=== PATIENT | female | born 1970 | race African-American/Black ===

== ENCOUNTER 2017-03-22 21:30 | Inpatient (IN) | payer MEDICAID, OTHER ==
[~2017-03-22] VITALS: Ht 154.9 cm; Wt 73.9 kg
[2017-03-22] MEDS ORDERED: MORPHINE SULFATE 4 MG/ML CPJ (NOT FOR IM USE) IV STA (23:38)
[2017-03-22] MEDS ORDERED: ONDANSETRON HCL 4MG/2ML VIAL IV STA (23:38)
[2017-03-22] MEDS ORDERED: SODIUM CHLORIDE 0.9% 1,000 ML IV ONE (23:38)
[2017-03-22 23:52] LABS: HEMATOCRIT. 40.8 % (36.0-48.0); HEMOGLOBIN. 13.8 g/dL (12.0-16.0); MEAN CORPUSCULAR HEMOGLOBIN 31.7 pg (28.0-32.0); MEAN CORPUSCULAR VOLUME 93.5 fL (81.0-99.0); MEAN PLATELET VOLUME 8.7 fl (7.4-10.4); PLATELET 104 x1000/uL (130-400); RED BLOOD CELL COUNT 4.36 mill/uL (4.2-5.4); RED CELL DISTRIBUTION WIDTH 14.1 % (11.6-14.6)
[2017-03-23] VITALS (63 sets, daily range): BP systolic 119–167; BP diastolic 48–118
[2017-03-23] LABS: CARBON DIOXIDE 25 mEq/L (21-32); CHLORIDE 106 mEq/L (98-107)
[2017-03-23 00:07] LABS: TROPONIN I 0.06 ng/mL (0.00-0.04)
[2017-03-23 00:35] LABS: *AMPHETAMINES SCREEN URINE NEGATIVE (NEGATIVE); *BARBITURATES SCREEN URINE NEGATIVE (NEGATIVE); *BENZODIAZEPINES SCREEN URINE NEGATIVE (NEGATIVE); *COCAINE SCREEN URINE NEGATIVE (NEGATIVE); CANNABINOID URINE SCREEN NEGATIVE (NEGATIVE); METHADONE URINE SCREEN NEGATIVE (NEGATIVE); PHENCYCLIDINE URINE SCREEN NEGATIVE (NEGATIVE)
[2017-03-23 00:48] LABS: OPIATES URINE SCREEN PRESUMTIVE POSITIVE (NEGATIVE)
[2017-03-23 01:34] LABS: PLATELET ESTIMATE DECREASED
[2017-03-23] MEDS ORDERED: DEXAMETHASONE 10 MG/ML VIAL IV ONE (02:15)
[2017-03-23] MEDS ORDERED: MORPHINE SULFATE 4 MG/ML CPJ (NOT FOR IM USE) IV ONE (02:15)
[2017-03-23] MEDS ORDERED: PHENYTOIN SODIUM 500 MG in SODIUM CHLORIDE 0.9% 50 ML IV ONE (02:15)
[2017-03-23] MEDS ORDERED: ENALAPRIL 2.5MG/2ML VIAL 2ML IV ONE (02:15)
[2017-03-23] MEDS ORDERED: MANNITOL 20% 250 ML IV ONE (02:15)
[2017-03-23] MEDS ORDERED: NICARDIPINE 50 MG in SODIUM CHLORIDE 0.9% 230 ML IV PRN (07:00)
[2017-03-23] MEDS: DEXT 5%/LACTATED RINGERS 1,000 ML IV SCH ×2 (07:32→23:32)
[2017-03-23] MEDS: MORPHINE SULFATE 2 MG/ML CPJ (NOT FOR IM USE) IV PRN ×2 (08:46→12:52)
[2017-03-23] MEDS: DEXAMETHASONE 4MG/ML 1ML VIAL IV SCH ×3 (12:05→23:32)
[2017-03-23] MEDS ORDERED: KCL 20MEQ/100ML PREMIX 100 ML IV SCH (12:30)
[2017-03-23] MEDS: BENAZEPRIL 20MG TABLET PO SCH ×2 (13:15→20:32)
[2017-03-23] MEDS: FUROSEMIDE 20MG TABLET PO SCH ×2 (13:15→20:32)
[2017-03-23] MEDS: AMLODIPINE 5MG TABLET PO SCH ×2 (13:20→20:32)
[2017-03-23] MEDS: NICARDIPINE 100 MG in SODIUM CHLORIDE 0.9% 60 ML IV PRN (13:38)
[2017-03-23] MEDS ORDERED: SODIUM CHLORIDE 0.9% 10ML VIAL ONE (13:43)
[2017-03-23] MEDS ORDERED: IOHEXOL-350 100 ML BOTTLE ONE (13:43)
[2017-03-23 15:29] LABS: TROPONIN I 0.03 ng/mL (0.00-0.04)
[2017-03-23] MEDS: PHENYTOIN SODIUM 100MG/2ML VIAL IV SCH ×2 (15:31→21:24)
[2017-03-23] MEDS ORDERED: MAGNESIUM 2 G PREMIX 50 ML IV NR ×2 (18:00→18:15)
[2017-03-23] MEDS: MORPHINE SULFATE 4 MG/ML CPJ (NOT FOR IM USE) IV PRN ×2 (18:21→22:28)
[2017-03-23 18:55] LABS: CHLORIDE 108 mEq/L (98-107)
[2017-03-23 19:01] LABS: CARBON DIOXIDE 20 mEq/L (21-32)
[2017-03-24] VITALS (38 sets, daily range): BP systolic 92–166; BP diastolic 57–115
[2017-03-24] MEDS ORDERED: CLON0.1T PO (01:53)
[2017-03-24] MEDS ORDERED: AZAT50TA24 PO (01:53)
[2017-03-24] MEDS ORDERED: FURO-151 PO (01:53)
[2017-03-24] MEDS ORDERED: HYDR-3280 MT (01:53)
[2017-03-24] MEDS ORDERED: QUIN40TA14 PO (01:53)
[2017-03-24] MEDS ORDERED: HYDROXYCHLOROQUINE (02:29)
[2017-03-24] MEDS ORDERED: LETAIRIS PO (02:29)
[2017-03-24] MEDS ORDERED: ANORO INH (02:29)
[2017-03-24] MEDS: MORPHINE SULFATE 4 MG/ML CPJ (NOT FOR IM USE) IV PRN ×6 (03:36→20:54)
[2017-03-24 05:25] LABS: HEMATOCRIT. 39.6 % (36.0-48.0); HEMOGLOBIN. 13.3 g/dL (12.0-16.0); MEAN CORPUSCULAR HEMOGLOBIN 31.5 pg (28.0-32.0); MEAN CORPUSCULAR VOLUME 93.9 fL (81.0-99.0); MEAN PLATELET VOLUME 8.8 fl (7.4-10.4); PLATELET 93 x1000/uL (130-400); RED BLOOD CELL COUNT 4.22 mill/uL (4.2-5.4); RED CELL DISTRIBUTION WIDTH 14.4 % (11.6-14.6)
[2017-03-24 05:42] LABS: CARBON DIOXIDE 23 mEq/L (21-32); CHLORIDE 106 mEq/L (98-107)
[2017-03-24] MEDS: DEXAMETHASONE 4MG/ML 1ML VIAL IV SCH ×3 (05:56→17:38)
[2017-03-24] MEDS: PHENYTOIN SODIUM 100MG/2ML VIAL IV SCH ×3 (05:56→21:06)
[2017-03-24] MEDS: BENAZEPRIL 20MG TABLET PO SCH ×2 (09:11→20:53)
[2017-03-24] MEDS: AMLODIPINE 5MG TABLET PO SCH ×2 (09:11→20:53)
[2017-03-24] MEDS: FUROSEMIDE 20MG TABLET PO SCH ×2 (09:11→20:53)
[2017-03-24] MEDS ORDERED: DEXTROSE 50% WATER 50ML SYRINGE IV PRN (09:45)
[2017-03-24] MEDS ORDERED: IPRATROPIUM/ALBUTEROL 0.5-3(2.5)MG/3ML NEB HHN PRN (09:45)
[2017-03-24] MEDS ORDERED: GADOBENATE DIMEGLUMINE 529 MG/ML 10ML IV ONE (11:17)
[2017-03-24] MEDS: INSULIN LISPRO 100 UNITS/ML SUBCUT SCH ×3 (12:00→20:53)
[2017-03-24] MEDS: BLOOD SUGAR DIAGNOSTIC STRIP TEST SCH ×3 (12:14→20:54)
[2017-03-24 19:43] LABS: INR 1.3; PROTHROMBIN TIME 13.4 sec (9.4-11.6)
[2017-03-24 20:29] LABS: PLATELET ESTIMATE MARKEDLY DECREASED
[2017-03-24] MEDS: DEXT 5%/LACTATED RINGERS 1,000 ML IV SCH (20:53)
[2017-03-25] VITALS (42 sets, daily range): BP systolic 115–157; BP diastolic 71–104
[2017-03-25] MEDS: DEXAMETHASONE 4MG/ML 1ML VIAL IV SCH ×4 (00:51→17:41)
[2017-03-25 05:28] LABS: HEMATOCRIT. 39.7 % (36.0-48.0); HEMOGLOBIN. 13.4 g/dL (12.0-16.0); MEAN CORPUSCULAR HEMOGLOBIN 31.3 pg (28.0-32.0); MEAN CORPUSCULAR VOLUME 92.7 fL (81.0-99.0); MEAN PLATELET VOLUME 8.8 fl (7.4-10.4); PLATELET 97 x1000/uL (130-400); RED BLOOD CELL COUNT 4.28 mill/uL (4.2-5.4); RED CELL DISTRIBUTION WIDTH 14.3 % (11.6-14.6)
[2017-03-25] MEDS: PHENYTOIN SODIUM 100MG/2ML VIAL IV SCH ×3 (05:34→21:32)
[2017-03-25] MEDS: MORPHINE SULFATE 4 MG/ML CPJ (NOT FOR IM USE) IV PRN (05:34)
[2017-03-25] MEDS: BLOOD SUGAR DIAGNOSTIC STRIP TEST SCH ×4 (05:35→21:15)
[2017-03-25 05:40] LABS: INR 1.3; PARTIAL THROMBOPLASTIN TIME 28.7 sec (23.4-31.0); PROTHROMBIN TIME 13.4 sec (9.4-11.6)
[2017-03-25 05:51] LABS: CARBON DIOXIDE 26 mEq/L (21-32); CHLORIDE 107 mEq/L (98-107)
[2017-03-25] MEDS ORDERED: POVIDONE-IODINE OINT 28.4GM TOP ONE (06:37)
[2017-03-25] MEDS ORDERED: LIDOCAINE HCL 1%/EPI 1:200,000 30 ML VIAL ONE (06:37)
[2017-03-25] MEDS ORDERED: GELATIN SPONGE,ABSORBABLE SZ 100 ONE (06:37)
[2017-03-25] MEDS ORDERED: THROMBIN (BOVINE) 5000 UNITS/VIAL TOP ONE (06:38)
[2017-03-25] MEDS ORDERED: BACITRACIN 50,000 UNITS/VIAL ONE ×2 (06:38→07:11)
[2017-03-25] MEDS ORDERED: NORMAL SALINE 0.9% 10 ML SYR ONE ×2 (06:42→07:10)
[2017-03-25] MEDS: INSULIN LISPRO 100 UNITS/ML SUBCUT SCH ×4 (06:53→21:00)
[2017-03-25] MEDS ORDERED: FENTANYL CITRATE/PF 50MCG/ML 2ML VIAL ONE ×2 (07:01→08:42)
[2017-03-25] MEDS ORDERED: DEXT 5%/LACTATED RINGERS 1,000 ML IV SCH (07:45)
[2017-03-25] MEDS ORDERED: MORPHINE SULFATE 2 MG/ML CPJ (NOT FOR IM USE) IV PRN (07:45)
[2017-03-25] MEDS ORDERED: NICARDIPINE 50 MG in SODIUM CHLORIDE 0.9% 230 ML IV PRN (07:45)
[2017-03-25] MEDS ORDERED: CEFAZOLIN SODIUM 1000MG/VIAL ONE (08:51)
[2017-03-25] MEDS ORDERED: ROCURONIUM BROMIDE 10MG/ML VIAL 5ML IV ONE (08:51)
[2017-03-25] MEDS ORDERED: PROPOFOL 200MG/20ML VIAL IV ONE (08:51)
[2017-03-25] MEDS ORDERED: ESMOLOL HCL 10MG/ML 10ML VIAL IV ONE (08:51)
[2017-03-25] MEDS ORDERED: PHENYLEPHRINE HCL 10 MG/ML 1ML (IV VIAL) IV ONE (08:51)
[2017-03-25] MEDS: BENAZEPRIL 20MG TABLET PO SCH ×2 (09:00→20:24)
[2017-03-25] MEDS: AMLODIPINE 5MG TABLET PO SCH ×2 (09:00→20:24)
[2017-03-25] MEDS: FUROSEMIDE 20MG TABLET PO SCH ×2 (09:00→20:24)
[2017-03-25] MEDS ORDERED: ONDANSETRON HCL 4MG/2ML VIAL ONE (09:19)
[2017-03-25] MEDS ORDERED: GLYCOPYRROLATE 0.2 MG/ML 2ML VIAL ONE (09:21)
[2017-03-25] MEDS ORDERED: NEOSTIGMINE METHYLSULFATE 1MG/ML 10 ML VIAL ONE (09:21)
[2017-03-25 09:23] LABS: PLATELET ESTIMATE DECREASED
[2017-03-25] MEDS ORDERED: LIDOCAINE HCL 1% 20ML VIAL (Pyxis) INJ ONE (09:28)
[2017-03-25] MEDS: MORPHINE SULFATE 2 MG/ML CPJ (NOT FOR IM USE) IV PRN ×3 (12:46→21:33)
[2017-03-25] MEDS ORDERED: CEFAZOLIN SODIUM 1000MG/VIAL IV SCH (14:00)
[2017-03-25] MEDS: CEFAZOLIN 1000MG PREMIX 50 ML IV SCH ×2 (14:27→21:32)
[2017-03-25] MEDS: DEXT 5%/LACTATED RINGERS 1,000 ML IV SCH (17:41)
[2017-03-26] VITALS (54 sets, daily range): BP systolic 120–170; BP diastolic 28–106
[2017-03-26] MEDS: DEXAMETHASONE 4MG/ML 1ML VIAL IV SCH ×5 (00:28→23:38)
[2017-03-26] MEDS: MORPHINE SULFATE 2 MG/ML CPJ (NOT FOR IM USE) IV PRN ×4 (01:09→21:10)
[2017-03-26] MEDS: DEXT 5%/LACTATED RINGERS 1,000 ML IV SCH ×2 (01:14→12:40)
[2017-03-26] MEDS: CEFAZOLIN 1000MG PREMIX 50 ML IV SCH ×2 (05:05→14:31)
[2017-03-26] MEDS: PHENYTOIN SODIUM 100MG/2ML VIAL IV SCH ×3 (05:05→21:07)
[2017-03-26 06:07] LABS: HEMATOCRIT. 41.1 % (36.0-48.0); MEAN CORPUSCULAR VOLUME 93.7 fL (81.0-99.0); MEAN PLATELET VOLUME 8.4 fl (7.4-10.4); PLATELET 97 x1000/uL (130-400); RED BLOOD CELL COUNT 4.39 mill/uL (4.2-5.4)
[2017-03-26 06:34] LABS: CARBON DIOXIDE 26 mEq/L (21-32); CHLORIDE 107 mEq/L (98-107)
[2017-03-26] MEDS: INSULIN LISPRO 100 UNITS/ML SUBCUT SCH ×4 (06:48→20:58)
[2017-03-26] MEDS: BLOOD SUGAR DIAGNOSTIC STRIP TEST SCH ×4 (06:48→20:57)
[2017-03-26 08:11] LABS: PLATELET ESTIMATE DECREASED
[2017-03-26] MEDS: BENAZEPRIL 20MG TABLET PO SCH ×2 (09:00→21:08)
[2017-03-26] MEDS: AMLODIPINE 5MG TABLET PO SCH ×2 (09:00→21:00)
[2017-03-26] MEDS: FUROSEMIDE 20MG TABLET PO SCH (09:00)
[2017-03-26] MEDS: DOCUSATE SODIUM SUGAR FREE 100MG/10ML UDC NG SCH (14:30)
[2017-03-26] MEDS: NICARDIPINE 100 MG in SODIUM CHLORIDE 0.9% 60 ML IV PRN (16:06)
[2017-03-27] VITALS (79 sets, daily range): BP systolic 122–170; BP diastolic 26–134
[2017-03-27] MEDS: MORPHINE SULFATE 2 MG/ML CPJ (NOT FOR IM USE) IV PRN ×3 (01:30→11:33)
[2017-03-27] MEDS: DEXAMETHASONE 4MG/ML 1ML VIAL IV SCH ×4 (05:12→23:29)
[2017-03-27] MEDS: PHENYTOIN SODIUM 100MG/2ML VIAL IV SCH (05:12)
[2017-03-27 05:44] LABS: BASOPHILS % 0.2 % (0.0-2.0); HEMATOCRIT. 43.6 % (36.0-48.0); LYMPHOCYTES % 7.3 % (20.0-50.0); MEAN CORPUSCULAR HEMOGLOBIN 31.7 pg (28.0-32.0); MEAN CORPUSCULAR VOLUME 92.7 fL (81.0-99.0); MEAN PLATELET VOLUME 8.9 fl (7.4-10.4); NEUTROPHILS % 84.5 % (40.0-76.0); PLATELET 106 x1000/uL (130-400); RED BLOOD CELL COUNT 4.71 mill/uL (4.2-5.4); RED CELL DISTRIBUTION WIDTH 13.7 % (11.6-14.6)
[2017-03-27] MEDS: BLOOD SUGAR DIAGNOSTIC STRIP TEST SCH ×4 (06:03→21:00)
[2017-03-27 06:06] LABS: CARBON DIOXIDE 29 mEq/L (21-32); CHLORIDE 102 mEq/L (98-107)
[2017-03-27] MEDS: INSULIN LISPRO 100 UNITS/ML SUBCUT SCH ×4 (06:10→21:00)
[2017-03-27] MEDS: DOCUSATE SODIUM SUGAR FREE 100MG/10ML UDC NG SCH (08:53)
[2017-03-27] MEDS: BENAZEPRIL 20MG TABLET PO SCH ×2 (08:56→20:55)
[2017-03-27] MEDS: AMLODIPINE 5MG TABLET PO SCH (08:57)
[2017-03-27] MEDS: DEXT 5%/LACTATED RINGERS 1,000 ML IV SCH (09:09)
[2017-03-27] MEDS: NIFEDIPINE XL 60MG TAB PO SCH ×2 (10:30→20:54)
[2017-03-27] MEDS: PHENYTOIN SODIUM EXTENDED 100MG CAPSULE PO SCH ×2 (12:45→20:55)
[2017-03-27] MEDS: FUROSEMIDE 20MG TABLET PO SCH (20:54)
[2017-03-27] MEDS: MORPHINE SULFATE 4 MG/ML CPJ (NOT FOR IM USE) IV PRN (22:39)
[2017-03-28] VITALS (26 sets, daily range): BP systolic 112–151; BP diastolic 60–106
[2017-03-28] MEDS: DEXT 5%/LACTATED RINGERS 1,000 ML IV SCH (03:40)
[2017-03-28] MEDS: INSULIN LISPRO 100 UNITS/ML SUBCUT SCH ×4 (05:24→21:07)
[2017-03-28] MEDS: PHENYTOIN SODIUM EXTENDED 100MG CAPSULE PO SCH ×3 (05:24→21:09)
[2017-03-28] MEDS: BLOOD SUGAR DIAGNOSTIC STRIP TEST SCH ×4 (05:24→21:03)
[2017-03-28] MEDS: DEXAMETHASONE 4MG/ML 1ML VIAL IV SCH ×3 (05:24→17:51)
[2017-03-28 06:07] LABS: BASOPHILS % 0.1 % (0.0-2.0); HEMOGLOBIN. 15.3 g/dL (12.0-16.0); LYMPHOCYTES % 7.5 % (20.0-50.0); MEAN CORPUSCULAR HEMOGLOBIN 31.3 pg (28.0-32.0); MEAN CORPUSCULAR VOLUME 92.1 fL (81.0-99.0); MEAN PLATELET VOLUME 8.7 fl (7.4-10.4); MONOCYTES % 6.3 % (2.0-8.0); NEUTROPHILS % 86.1 % (40.0-76.0); PLATELET 127 x1000/uL (130-400); RED BLOOD CELL COUNT 4.89 mill/uL (4.2-5.4); RED CELL DISTRIBUTION WIDTH 13.5 % (11.6-14.6)
[2017-03-28 07:46] LABS: CARBON DIOXIDE 28 mEq/L (21-32); CHLORIDE 104 mEq/L (98-107)
[2017-03-28] MEDS: MORPHINE SULFATE 4 MG/ML CPJ (NOT FOR IM USE) IV PRN ×3 (07:59→19:21)
[2017-03-28] MEDS: FUROSEMIDE 20MG TABLET PO SCH ×2 (08:43→21:06)
[2017-03-28] MEDS: DOCUSATE SODIUM SUGAR FREE 100MG/10ML UDC NG SCH (08:43)
[2017-03-28] MEDS: BENAZEPRIL 20MG TABLET PO SCH ×2 (08:51→21:07)
[2017-03-28] MEDS: NIFEDIPINE XL 60MG TAB PO SCH ×2 (08:52→21:07)
[2017-03-29] VITALS (20 sets, daily range): BP systolic 118–144; BP diastolic 26–91
[2017-03-29] MEDS: DEXAMETHASONE 4MG/ML 1ML VIAL IV SCH ×5 (00:31→23:19)
[2017-03-29] MEDS: BLOOD SUGAR DIAGNOSTIC STRIP TEST SCH ×4 (06:43→20:43)
[2017-03-29] MEDS: INSULIN LISPRO 100 UNITS/ML SUBCUT SCH ×4 (06:43→20:44)
[2017-03-29] MEDS: MORPHINE SULFATE 4 MG/ML CPJ (NOT FOR IM USE) IV PRN ×4 (06:44→20:42)
[2017-03-29] MEDS: PHENYTOIN SODIUM EXTENDED 100MG CAPSULE PO SCH ×3 (06:45→23:19)
[2017-03-29] MEDS: DOCUSATE SODIUM SUGAR FREE 100MG/10ML UDC NG SCH (09:29)
[2017-03-29] MEDS: NIFEDIPINE XL 60MG TAB PO SCH ×2 (09:30→20:42)
[2017-03-29] MEDS: BENAZEPRIL 20MG TABLET PO SCH ×2 (09:30→20:42)
[2017-03-29] MEDS: FUROSEMIDE 20MG TABLET PO SCH ×2 (09:30→20:42)
[2017-03-30] VITALS: BP 133/91
[2017-03-30 04:00] VITALS: BP 122/82
[2017-03-30] MEDS: MORPHINE SULFATE 4 MG/ML CPJ (NOT FOR IM USE) IV PRN ×4 (04:34→21:18)
[2017-03-30] MEDS: DEXAMETHASONE 4MG/ML 1ML VIAL IV SCH ×4 (05:26→23:45)
[2017-03-30] MEDS: PHENYTOIN SODIUM EXTENDED 100MG CAPSULE PO SCH ×3 (05:26→21:18)
[2017-03-30 08:00] VITALS: BP 122/76
[2017-03-30] MEDS: INSULIN LISPRO 100 UNITS/ML SUBCUT SCH ×4 (08:00→21:00)
[2017-03-30] MEDS: BLOOD SUGAR DIAGNOSTIC STRIP TEST SCH ×4 (08:11→21:00)
[2017-03-30] MEDS: FUROSEMIDE 20MG TABLET PO SCH ×2 (08:50→21:18)
[2017-03-30] MEDS: DOCUSATE SODIUM SUGAR FREE 100MG/10ML UDC NG SCH (08:50)
[2017-03-30] MEDS: BENAZEPRIL 20MG TABLET PO SCH ×2 (08:51→21:18)
[2017-03-30] MEDS: NIFEDIPINE XL 60MG TAB PO SCH ×2 (08:51→21:19)
[2017-03-30 12:00] VITALS: BP 110/87
[2017-03-30] MEDS ORDERED: BACITRACIN/POLYMYXIN B SULFATE OINT 15GM TOP NR (15:30)
[2017-03-30 16:00] VITALS: BP 117/78
[2017-03-30 20:00] VITALS: BP 131/77
[2017-03-30] MEDS ORDERED: OMEPRAZOLE 20MG CAPSULE EXTENDED RELEASE PO NR (20:45)
[2017-03-31] VITALS: BP 133/91
[2017-03-31 06:00] VITALS: BP 122/82
[2017-03-31] MEDS: DEXAMETHASONE 4MG/ML 1ML VIAL IV SCH ×2 (06:29→13:32)
[2017-03-31] MEDS: MORPHINE SULFATE 4 MG/ML CPJ (NOT FOR IM USE) IV PRN ×2 (06:29→09:20)
[2017-03-31] MEDS: PHENYTOIN SODIUM EXTENDED 100MG CAPSULE PO SCH (06:31)
[2017-03-31] MEDS: BLOOD SUGAR DIAGNOSTIC STRIP TEST SCH ×2 (07:30→12:25)
[2017-03-31] MEDS ORDERED: OMEPRAZOLE 20MG CAPSULE EXTENDED RELEASE PO SCH (07:30)
[2017-03-31 08:00] VITALS: BP 120/80
[2017-03-31] MEDS ORDERED: SUMATRIPTAN SUCCINATE 25MG TABLET PO PRN (08:00)
[2017-03-31] MEDS: INSULIN LISPRO 100 UNITS/ML SUBCUT SCH ×2 (08:00→13:32)
[2017-03-31] MEDS: FUROSEMIDE 20MG TABLET PO SCH (09:13)
[2017-03-31] MEDS: DOCUSATE SODIUM SUGAR FREE 100MG/10ML UDC NG SCH (09:13)
[2017-03-31] MEDS: NIFEDIPINE XL 60MG TAB PO SCH (09:15)
[2017-03-31] MEDS: BENAZEPRIL 20MG TABLET PO SCH (09:15)
[2017-03-31] MEDS ORDERED: IMIT25 PO (10:46)
[2017-03-31] MEDS ORDERED: FURO20TA4 PO (10:46)
[2017-03-31] MEDS ORDERED: PHEN100C4 PO (10:46)
[2017-03-31] MEDS ORDERED: METH4TAB PO (10:46)
[2017-03-31] MEDS ORDERED: NIFE60TA64 PO (10:46)
[2017-03-31] MEDS ORDERED: BENA20TA3 PO (10:46)
[2017-03-31 12:00] VITALS: BP 122/85
[2017-03-31 13:00] VITALS: BP 120/60
== END 2017-03-31 18:10 | disposition home or self-care (01) | DRG 20 ==
LOC: ER 21:30 → EDBEDREQ 03-23 01:50 → EDBEDREQTM 03-23 02:51 → ENRESERV 03-23 03:26 → MICUSO 03-23 07:09 → 5EST 03-29 15:20
PROVIDERS: ADMIT Internal Medicine; ATTEND Internal Medicine
PROC: 00U207Z Supplement Dura Mater with Autologous Tissue Substitute, Open Approach (ICD-10-PCS; 2017-03-25)
PROC: 4A103BD Monitoring of Intracranial Pressure, Percutaneous Approach (ICD-10-PCS; 2017-03-25)
PROC: 00H632Z Insertion of Monitoring Device into Cerebral Ventricle, Percutaneous Approach (ICD-10-PCS; 2017-03-25)
PROC: 0NQ00ZZ Repair Skull, Open Approach (ICD-10-PCS; 2017-03-25)
PROC: 00C40ZZ Extirpation of Matter from Intracranial Subdural Space, Open Approach (ICD-10-PCS; principal; 2017-03-25 07:30)
DX: S06.5X9A Traumatic subdural hemorrhage with loss of consciousness of unspecified duration, initial encounter (principal); G93.40 Encephalopathy, unspecified; E43 Unspecified severe protein-calorie malnutrition; J96.10 Chronic respiratory failure, unspecified whether with hypoxia or hypercapnia; I27.2 Other secondary pulmonary hypertension; I11.0 Hypertensive heart disease with heart failure; I50.9 Heart failure, unspecified; E87.6 Hypokalemia; Z88.1 Allergy status to other antibiotic agents; G43.909 Migraine, unspecified, not intractable, without status migrainosus; K59.00 Constipation, unspecified; Z99.81 Dependence on supplemental oxygen; Z82.49 Family history of ischemic heart disease and other diseases of the circulatory system
CPT/HCPCS: 36415; 70450; 70496; 70544; 70553; 71010; 80048; 80053; 80061; 80305; 81025; 82962; 83735; 83880; 84443; 84484; 85025; 85610; 85730; 86850; 86900; 88304; 93005; 93306; 93970; 96361; 96365; 96375; 96376; 97112; 97116; 97162; 97166; 99291; A4216; A9577; C1713; J0690; J1100; J1165; J1815; J2270; J2370; J2405; J2704; J2710; J3010; J3475; J3480; J3490; J7030; J7050; Q9967

== ENCOUNTER 2017-04-04 13:32 | Emergency (ER) | payer MEDICAID ==
[~2017-04-04] VITALS: Ht 160 cm; Wt 65.0 kg
[~2017-04-04 13:32] MED LIST: ANORO INH; AZAT50TA24 PO; BENA20TA3 PO; FURO20TA4 PO; HYDROXYCHLOROQUINE; IMIT25 PO; LETAIRIS PO; METH4TAB PO; NIFE60TA64 PO; PHEN100C4 PO
[2017-04-04] MEDS ORDERED: SUMATRIPTAN SUCCINATE 6MG/0.5ML VIAL SUBCUT ONE (15:00)
[2017-04-04] MEDS ORDERED: HYDROCODONE/ACETAMINOPHEN 5/325MG TABLET PO ONE (15:00)
[2017-04-04 17:00] VITALS: BP 134/98
[2017-04-04] MEDS ORDERED: FAMOTIDINE 20MG TABLET PO ONE (17:00)
== END 2017-04-04 18:00 | disposition home or self-care (01) ==
LOC: ER 13:53
DX: G43.909 Migraine, unspecified, not intractable, without status migrainosus (principal); I25.2 Old myocardial infarction; I50.9 Heart failure, unspecified; M32.9 Systemic lupus erythematosus, unspecified; Z86.73 Personal history of transient ischemic attack (TIA), and cerebral infarction without residual deficits; Z98.890 Other specified postprocedural states
CPT/HCPCS: 70450; 81025; 96372; 99284; J3030; Z7610

== ENCOUNTER 2018-05-30 09:15 | Emergency (ER) | payer MEDICAID, OTHER ==
[~2018-05-30] VITALS: Ht 154.9 cm; Wt 64.4 kg
[~2018-05-30 09:15] MED LIST changes: +AMBR10TA3 PO; +BENA20TA10 PO; -BENA20TA3 PO
[2018-05-30 09:20] VITALS: BP 101/67
== END 2018-05-30 16:07 | disposition left against medical advice (07) ==
LOC: ER 09:39
DX: Z53.21 Procedure and treatment not carried out due to patient leaving prior to being seen by health care provider (principal)

== ENCOUNTER 2018-07-25 23:33 | Inpatient (IN) | payer MEDICAID ==
[~2018-07-25] VITALS: Ht 152.4 cm; Wt 61.2 kg
[2018-07-26] MEDS ORDERED: HYDROCODONE/ACETAMINOPHEN 5/325MG TABLET PO ONE (00:45)
[2018-07-26] MEDS ORDERED: SODIUM CHLORIDE 0.9% 1,000 ML IV ONE (02:08)
[2018-07-26 03:17] LABS: BASOPHILS % 0.5 % (0.0-2.0); EOSINOPHILS % 0.4 % (0.0-5.0); HEMOGLOBIN. 14.8 g/dL (12.0-16.0); LYMPHOCYTES % 14.5 % (20.0-50.0); MEAN CORPUSCULAR HEMOGLOBIN 32.6 pg (28.0-32.0); MEAN CORPUSCULAR VOLUME 92.7 fL (81.0-99.0); MEAN PLATELET VOLUME 8.8 fl (7.4-10.4); NEUTROPHILS % 76.6 % (40.0-76.0); PLATELET 109 x1000/uL (130-400); RED BLOOD CELL COUNT 4.53 mill/uL (4.2-5.4); RED CELL DISTRIBUTION WIDTH 13.4 % (11.6-14.6)
[2018-07-26 03:19] LABS: HCG SCREEN NEGATIVE
[2018-07-26 03:22] LABS: CHLORIDE 109 mEq/L (98-107); INR 1.2; PARTIAL THROMBOPLASTIN TIME 29.7 sec (23.4-31.0); PROTHROMBIN TIME 11.6 sec (9.1-11.1)
[2018-07-26] MEDS ORDERED: MORPHINE SULFATE 4 MG/ML CPJ (NOT FOR IM USE) IV ONE (04:00)
[2018-07-26] MEDS ORDERED: ONDANSETRON HCL 4MG/2ML INJ IV ONE (04:00)
[2018-07-26] MEDS ORDERED: MORPHINE SULFATE 4 MG/ML CPJ (NOT FOR IM USE) IV SCH ×2 (06:15)
[2018-07-26 06:47] LABS: CLARITY URINE CLEAR (CLEAR); COLOR URINE YELLOW (YELLOW); KETONES URINE NEGATIVE (NEGATIVE); LEUKOCYTE ESTERASE URINE NEGATIVE (NEGATIVE); NITRITE URINE NEGATIVE (NEGATIVE); OCCULT BLOOD URINE 2+ (NEGATIVE); PH URINE 5.5 (4.5-8.0); PROTEIN URINE NEGATIVE (NEGATIVE)
[2018-07-26] MEDS ORDERED: KCL 20MEQ/100ML PREMIX 100 ML IV ONE (07:30)
[2018-07-26] MEDS: MORPHINE SULFATE 4 MG/ML CPJ (NOT FOR IM USE) IV PRN ×3 (09:38→23:54)
[2018-07-26 10:45] VITALS: BP 118/83
[2018-07-26] MEDS ORDERED: FURO-152 MT (13:05)
[2018-07-26] MEDS ORDERED: FLUT9.9S BOTHNSTRLS (13:06)
[2018-07-26] MEDS ORDERED: AZAT50TA18 MT (13:07)
[2018-07-26] MEDS ORDERED: PRED5TAB MT (13:08)
[2018-07-26] MEDS ORDERED: IPRATROPIUM/ALBUTEROL 0.5-3(2.5)MG/3ML NEB INH PRN (13:15)
[2018-07-26] MEDS ORDERED: ACETAMINOPHEN 325MG TABLET PO PRN (13:15)
[2018-07-26] MEDS ORDERED: ONDANSETRON HCL 4MG/2ML INJ IV PRN (13:15)
[2018-07-26] MEDS: HYDROCODONE/ACETAMINOPHEN 10/325MG TABLET PO PRN ×2 (13:41→20:50)
[2018-07-26] MEDS ORDERED: MAGNESIUM 1 G PREMIX 100 ML IV NR (14:00)
[2018-07-26 14:38] VITALS: BP 135/86
[2018-07-26] MEDS: SODIUM CHLORIDE 0.9% 1,000 ML IV SCH (15:52)
[2018-07-26 16:00] VITALS: BP 120/71
[2018-07-26 20:00] VITALS: BP 129/85
[2018-07-27] VITALS: BP_SYST 84
[2018-07-27] MEDS: HYDROCODONE/ACETAMINOPHEN 10/325MG TABLET PO PRN ×2 (03:46→09:35)
[2018-07-27 04:00] VITALS: BP 123/76
[2018-07-27] MEDS: SODIUM CHLORIDE 0.9% 1,000 ML IV SCH ×2 (05:52→22:14)
[2018-07-27 06:53] LABS: HEMATOCRIT. 34.4 % (36.0-48.0); HEMOGLOBIN. 11.9 g/dL (12.0-16.0); MEAN CORPUSCULAR HEMOGLOBIN 32.3 pg (28.0-32.0); MEAN PLATELET VOLUME 8.8 fl (7.4-10.4); PLATELET 82 x1000/uL (130-400); RED CELL DISTRIBUTION WIDTH 13.5 % (11.6-14.6)
[2018-07-27] MEDS: MORPHINE SULFATE 4 MG/ML CPJ (NOT FOR IM USE) IV PRN ×2 (06:54→13:30)
[2018-07-27 08:00] VITALS: BP 122/80
[2018-07-27 08:04] LABS: CHLORIDE 109 mEq/L (98-107)
[2018-07-27] MEDS ORDERED: POTASSIUM CHLORIDE 20MEQ/PACKET PO SCH (10:15)
[2018-07-27 12:00] VITALS: BP 108/63
[2018-07-27] MEDS ORDERED: MAGNESIUM 1 G PREMIX 100 ML IV SCH (12:00)
[2018-07-27 13:49] LABS: *AMPHETAMINES SCREEN URINE NEGATIVE (NEGATIVE); *BARBITURATES SCREEN URINE NEGATIVE (NEGATIVE); *BENZODIAZEPINES SCREEN URINE NEGATIVE (NEGATIVE); *COCAINE SCREEN URINE NEGATIVE (NEGATIVE)
[2018-07-27 13:50] LABS: CANNABINOID URINE SCREEN NEGATIVE (NEGATIVE); METHADONE URINE SCREEN NEGATIVE (NEGATIVE); PHENCYCLIDINE URINE SCREEN NEGATIVE (NEGATIVE)
[2018-07-27 13:54] LABS: OPIATES URINE SCREEN PRESUMTIVE POSITIVE (NEGATIVE)
[2018-07-27] MEDS ORDERED: BUPIVACAINE/EPINEPH/PF 0.25%/0.0005 10ML ONE (15:39)
[2018-07-27] MEDS ORDERED: MORPHINE SULFATE/PF 1MG/ML 10ML AMP ONE (15:40)
[2018-07-27] MEDS ORDERED: BACITRACIN 15GM TUBE TOP ONE (15:40)
[2018-07-27] MEDS ORDERED: BUPIVACAINE HCL/PF 0.25% (2.5MG/ML) 10ML ONE (15:40)
[2018-07-27] MEDS ORDERED: VANCOMYCIN HCL 500 MG/VIAL ONE (15:41)
[2018-07-27] MEDS ORDERED: BACITRACIN 50,000 UNITS/VIAL ONE (15:41)
[2018-07-27] MEDS ORDERED: NORMAL SALINE 0.9% 10 ML SYR ONE (15:41)
[2018-07-27 15:47] LABS: PLATELET ESTIMATE SLIGHTLY DECREASED
[2018-07-27 16:17] VITALS: BP 127/91
[2018-07-27] MEDS ORDERED: HYDROMORPHONE HCL/PF 2MG/ML CPJ IV PRN (16:45)
[2018-07-27] MEDS ORDERED: ONDANSETRON HCL 4MG/2ML INJ IV PRN ×2 (16:45→20:15)
[2018-07-27] MEDS ORDERED: MEPERIDINE HCL/PF 25MG/ML CPJ IV PRN (16:45)
[2018-07-27] MEDS ORDERED: LABETALOL 5MG/ML SYR 20 MG/4 ML SYRINGE IV PRN (16:45)
[2018-07-27] MEDS ORDERED: PROPOFOL 200MG/20ML VIAL IV ONE (16:47)
[2018-07-27] MEDS ORDERED: FENTANYL CITRATE/PF 50MCG/ML 2ML VIAL ONE (16:47)
[2018-07-27] MEDS ORDERED: MIDAZOLAM HCL 2 MG/2 ML VIAL ONE (16:48)
[2018-07-27] MEDS ORDERED: DEXAMETHASONE 4MG/ML 1ML VIAL ONE (17:00)
[2018-07-27] MEDS ORDERED: ONDANSETRON HCL 4MG/2ML INJ ONE (17:00)
[2018-07-27] MEDS ORDERED: HYDROMORPHONE HCL/PF 2MG/ML (OR) ONE (19:47)
[2018-07-27] MEDS ORDERED: SODIUM CHLORIDE 0.9% 10ML VIAL ONE (19:48)
[2018-07-27] MEDS ORDERED: LIDOCAINE HCL/PF 1% 10 MG/ML 5ML VIAL ONE (19:48)
[2018-07-27] MEDS ORDERED: ONDANSETRON INJ IV PRN (20:15)
[2018-07-27] MEDS ORDERED: ZOLPIDEM TARTRATE 5MG TABLET PO PRN (20:15)
[2018-07-27] MEDS ORDERED: NALOXONE INJ IV PRN (20:15)
[2018-07-27] MEDS ORDERED: ACETAMINOPHEN 325MG TABLET PO PRN (20:15)
[2018-07-27] MEDS ORDERED: HYDROMORPHONE PCA 10MG/50ML IV PRN (20:15)
[2018-07-27] MEDS ORDERED: HYDROCODONE/ACETAMINOPHEN 10/325MG TABLET PO PRN ×2 (20:15)
[2018-07-27] MEDS: CEFAZOLIN 2,000 MG in DEXT 5% WATER 100 ML IV SCH (22:14)
[2018-07-28] VITALS: BP 131/99
[2018-07-28] MEDS: CEFAZOLIN 2,000 MG in DEXT 5% WATER 100 ML IV SCH ×3 (05:37→15:57)
[2018-07-28 07:19] LABS: HEMATOCRIT. 34.6 % (36.0-48.0); MEAN CORPUSCULAR HEMOGLOBIN 32.5 pg (28.0-32.0); MEAN CORPUSCULAR VOLUME 93.6 fL (81.0-99.0); MEAN PLATELET VOLUME 8.5 fl (7.4-10.4); PLATELET 53 x1000/uL (130-400); RED CELL DISTRIBUTION WIDTH 13.7 % (11.6-14.6)
[2018-07-28 07:21] LABS: CHLORIDE 108 mEq/L (98-107)
[2018-07-28] MEDS ORDERED: ENOXAPARIN 40MG/0.4ML SYR SUBCUT SCH (09:00)
[2018-07-28] MEDS: HYDROCODONE/ACETAMINOPHEN 10/325MG TABLET PO PRN ×3 (12:03→21:33)
[2018-07-28 14:27] LABS: PLATELET ESTIMATE DECREASED
[2018-07-28] MEDS: SODIUM CHLORIDE 0.9% 1,000 ML IV SCH (15:43)
[2018-07-28] MEDS: MORPHINE SULFATE 4 MG/ML CPJ (NOT FOR IM USE) IV PRN (17:46)
[2018-07-28] MEDS ORDERED: MAGNESIUM SULFATE 1GM/2ML VIAL IV ONE (19:30)
[2018-07-28 20:00] VITALS: BP 129/91
[2018-07-28] MEDS ORDERED: MAGNESIUM 1 G PREMIX 100 ML IV SCH (21:00)
[2018-07-29] VITALS: BP 114/81
[2018-07-29] MEDS: MORPHINE SULFATE 4 MG/ML CPJ (NOT FOR IM USE) IV PRN ×4 (01:36→21:38)
[2018-07-29] MEDS: SODIUM CHLORIDE 0.9% 1,000 ML IV SCH (02:32)
[2018-07-29] MEDS: HYDROCODONE/ACETAMINOPHEN 10/325MG TABLET PO PRN ×3 (03:35→16:50)
[2018-07-29 04:00] VITALS: BP 114/85
[2018-07-29] MEDS: CEFAZOLIN 2,000 MG in DEXT 5% WATER 100 ML IV SCH (05:39)
[2018-07-29 06:42] LABS: BASOPHILS % 0.2 % (0.0-2.0); EOSINOPHILS % 0.4 % (0.0-5.0); HEMATOCRIT. 31.3 % (36.0-48.0); HEMOGLOBIN. 10.9 g/dL (12.0-16.0); LYMPHOCYTES % 15.8 % (20.0-50.0); MEAN CORPUSCULAR HEMOGLOBIN 32.6 pg (28.0-32.0); MEAN CORPUSCULAR VOLUME 93.7 fL (81.0-99.0); MEAN PLATELET VOLUME 9.3 fl (7.4-10.4); MONOCYTES % 13.2 % (2.0-8.0); NEUTROPHILS % 70.4 % (40.0-76.0); PLATELET 51 x1000/uL (130-400); RED BLOOD CELL COUNT 3.34 mill/uL (4.2-5.4); RED CELL DISTRIBUTION WIDTH 13.6 % (11.6-14.6)
[2018-07-29 08:26] LABS: CHLORIDE 110 mEq/L (98-107)
[2018-07-29] MEDS: FUROSEMIDE 20MG TABLET PO SCH (09:58)
[2018-07-29 20:00] VITALS: BP 122/78
[2018-07-29] MEDS: CEFAZOLIN 1000MG PREMIX 50 ML IV SCH (22:27)
[2018-07-30] VITALS: BP 124/79
[2018-07-30] MEDS: HYDROCODONE/ACETAMINOPHEN 10/325MG TABLET PO PRN ×3 (01:49→19:47)
[2018-07-30 04:00] VITALS: BP 121/75
[2018-07-30] MEDS: SODIUM CHLORIDE 0.9% 1,000 ML IV SCH (04:36)
[2018-07-30] MEDS: CEFAZOLIN 1000MG PREMIX 50 ML IV SCH ×3 (05:17→22:46)
[2018-07-30] MEDS: MORPHINE SULFATE 4 MG/ML CPJ (NOT FOR IM USE) IV PRN ×4 (06:41→23:12)
[2018-07-30 08:00] VITALS: BP 124/83
[2018-07-30] MEDS: FUROSEMIDE 20MG TABLET PO SCH (08:38)
[2018-07-30 12:00] VITALS: BP 104/68
[2018-07-30 16:00] VITALS: BP 175/79
[2018-07-30 20:00] VITALS: BP 160/95
[2018-07-31] MEDS: HYDROCODONE/ACETAMINOPHEN 10/325MG TABLET PO PRN ×3 (01:28→15:47)
[2018-07-31] MEDS: CEFAZOLIN 1000MG PREMIX 50 ML IV SCH ×2 (05:33→15:45)
[2018-07-31] MEDS: MORPHINE SULFATE 4 MG/ML CPJ (NOT FOR IM USE) IV PRN (05:34)
[2018-07-31 07:45] LABS: BASOPHILS % 0.7 % (0.0-2.0); EOSINOPHILS % 2.9 % (0.0-5.0); HEMATOCRIT. 30.9 % (36.0-48.0); HEMOGLOBIN. 10.5 g/dL (12.0-16.0); LYMPHOCYTES % 21.4 % (20.0-50.0); MEAN CORPUSCULAR HEMOGLOBIN 31.9 pg (28.0-32.0); MEAN CORPUSCULAR VOLUME 93.6 fL (81.0-99.0); MEAN PLATELET VOLUME 9.2 fl (7.4-10.4); MONOCYTES % 14.5 % (2.0-8.0); NEUTROPHILS % 60.5 % (40.0-76.0); PLATELET 69 x1000/uL (130-400); RED CELL DISTRIBUTION WIDTH 13.7 % (11.6-14.6)
[2018-07-31 08:00] VITALS: BP 126/82
[2018-07-31] MEDS: FUROSEMIDE 20MG TABLET PO SCH (09:27)
[2018-07-31] MEDS: SODIUM CHLORIDE 0.9% 1,000 ML IV SCH (09:29)
[2018-07-31 09:31] LABS: CHLORIDE 108 mEq/L (98-107)
[2018-07-31] MEDS ORDERED: MAGNESIUM OXIDE 400MG TABLET PO SCH (10:45)
[2018-07-31] MEDS ORDERED: MAGNESIUM 2 G PREMIX 50 ML IV NR (11:30)
[2018-07-31 12:00] VITALS: BP 116/82
[2018-07-31 16:00] VITALS: BP 120/80
== END 2018-07-31 18:37 | disposition home or self-care (01) | DRG 313 ==
LOC: ER 07-26 02:00 → 6EST 07-26 02:09 → ENRESERV 07-26 10:00
PROVIDERS: ADMIT Internal Medicine; ATTEND Internal Medicine
PROC: 0QSG04Z Reposition Right Tibia with Internal Fixation Device, Open Approach (ICD-10-PCS; principal; 2018-07-27)
PROC: 0QSJ04Z Reposition Right Fibula with Internal Fixation Device, Open Approach (ICD-10-PCS; 2018-07-27)
DX: S82.851A Displaced trimalleolar fracture of right lower leg, initial encounter for closed fracture (principal); J96.10 Chronic respiratory failure, unspecified whether with hypoxia or hypercapnia; D69.6 Thrombocytopenia, unspecified; I27.20 Pulmonary hypertension, unspecified; I11.0 Hypertensive heart disease with heart failure; I50.30 Unspecified diastolic (congestive) heart failure; E83.42 Hypomagnesemia; M32.9 Systemic lupus erythematosus, unspecified; R74.0 Nonspecific elevation of levels of transaminase and lactic acid dehydrogenase [LDH]; E87.6 Hypokalemia; M13.0 Polyarthritis, unspecified; G43.909 Migraine, unspecified, not intractable, without status migrainosus; W01.0XXA Fall on same level from slipping, tripping and stumbling without subsequent striking against object, initial encounter; Z86.73 Personal history of transient ischemic attack (TIA), and cerebral infarction without residual deficits; Z82.49 Family history of ischemic heart disease and other diseases of the circulatory system; Y93.01 Activity, walking, marching and hiking
CPT/HCPCS: 36415; 73610; 80048; 80305; 83735; 84703; 86850; 86900; 93005; 93306; 93970; 96374; 97110; 97116; 97162; 97166; 97530; 97535; 99285; C1713; J0171; J0690; J1100; J1170; J2250; J2270; J2274; J2405; J2704; J3010; J3370; J3475; J3480; J3490; J7030; J7060; Q4051

== ENCOUNTER 2019-03-03 21:55 | Inpatient (IN) | payer MEDICAID ==
[~2019-03-03] VITALS: Ht 157.5 cm; Wt 69.5 kg
[~2019-03-03 21:55] MED LIST changes: +AZAT50TA18 MT; +FLUT9.9S BOTHNSTRLS; +FURO-152 MT; +PRED5TAB MT
[2019-03-03] MEDS ORDERED: SODIUM CHLORIDE 0.9% 1,000 ML IV ONE (22:32)
[2019-03-03 23:49] LABS: BASOPHILS % 0.8 % (0.0-2.0); EOSINOPHILS % 2.1 % (0.0-5.0); HEMATOCRIT. 39.5 % (36.0-48.0); HEMOGLOBIN. 13.4 g/dL (12.0-16.0); LYMPHOCYTES % 28.3 % (20.0-50.0); MEAN CORPUSCULAR HEMOGLOBIN 31.7 pg (28.0-32.0); MEAN CORPUSCULAR VOLUME 93.2 fL (81.0-99.0); MEAN PLATELET VOLUME 9.6 fl (7.4-10.4); MONOCYTES % 12.7 % (2.0-8.0); NEUTROPHILS % 56.1 % (40.0-76.0); PLATELET 76 x1000/uL (130-400); RED BLOOD CELL COUNT 4.23 mill/uL (4.2-5.4); RED CELL DISTRIBUTION WIDTH 14.6 % (11.6-14.6)
[2019-03-03 23:53] LABS: CHLORIDE 111 mEq/L (98-107)
[2019-03-04] MEDS ORDERED: IOHEXOL-350 100 ML BOTTLE ONE (02:55)
[2019-03-04] MEDS ORDERED: ASPIRIN 81MG TABLET PO ONE (03:30)
[2019-03-04] MEDS ORDERED: NITROGLYCERIN OINT 1GM/INCH UDPKT TD ONE (03:30)
[2019-03-04 09:00] VITALS: BP 131/96
[2019-03-04] MEDS ORDERED: IPRATROPIUM/ALBUTEROL 0.5-3(2.5)MG/3ML NEB INH PRN (10:00)
[2019-03-04] MEDS ORDERED: CLONIDINE 0.1MG TABLET PO PRN (10:00)
[2019-03-04] MEDS ORDERED: DOCUSATE SODIUM 100MG CAPSULE PO PRN (10:00)
[2019-03-04] MEDS ORDERED: HYDROCODONE/ACETAMINOPHEN 5/325MG TABLET PO PRN (10:00)
[2019-03-04] MEDS ORDERED: ONDANSETRON HCL 4MG/2ML INJ IV PRN (10:00)
[2019-03-04 12:00] VITALS: BP 135/93
[2019-03-04] MEDS: ACETAMINOPHEN 325MG TABLET PO PRN (12:19)
[2019-03-04] MEDS ORDERED: NON FORMULARY PATIENT HOME MED XX SCH (15:45)
[2019-03-04 16:00] VITALS: BP 132/88
[2019-03-04] MEDS: AZATHIOPRINE 50MG TABLET PO SCH (17:46)
[2019-03-04] MEDS ORDERED: SUMATRIPTAN SUCCINATE 25MG TABLET PO PRN (18:00)
[2019-03-04 20:00] VITALS: BP 139/96
[2019-03-04] MEDS: PHENYTOIN SODIUM EXTENDED 100MG CAPSULE PO SCH (22:00)
[2019-03-04] MEDS: BENAZEPRIL 10MG TABLET PO SCH (22:00)
[2019-03-05] VITALS: BP 147/99
[2019-03-05 00:32] LABS: CLARITY URINE CLEAR (CLEAR); COLOR URINE YELLOW (YELLOW); KETONES URINE NEGATIVE (NEGATIVE); LEUKOCYTE ESTERASE URINE NEGATIVE (NEGATIVE); NITRITE URINE NEGATIVE (NEGATIVE); OCCULT BLOOD URINE 3+ (NEGATIVE); PROTEIN URINE 1+ (NEGATIVE); SPECIFIC GRAVITY URINE 1.013 (1.005-1.030)
[2019-03-05 01:43] LABS: *AMPHETAMINES SCREEN URINE NEGATIVE (NEGATIVE); *BARBITURATES SCREEN URINE NEGATIVE (NEGATIVE); *BENZODIAZEPINES SCREEN URINE NEGATIVE (NEGATIVE); *COCAINE SCREEN URINE NEGATIVE (NEGATIVE); METHADONE URINE SCREEN NEGATIVE (NEGATIVE); OPIATES URINE SCREEN NEGATIVE (NEGATIVE)
[2019-03-05 01:44] LABS: CANNABINOID URINE SCREEN NEGATIVE (NEGATIVE); PHENCYCLIDINE URINE SCREEN NEGATIVE (NEGATIVE)
[2019-03-05 04:00] VITALS: BP 149/98
[2019-03-05] MEDS: PHENYTOIN SODIUM EXTENDED 100MG CAPSULE PO SCH ×3 (05:03→21:10)
[2019-03-05 06:22] LABS: HEMOGLOBIN. 12.9 g/dL (12.0-16.0); MEAN CORPUSCULAR HEMOGLOBIN 31.4 pg (28.0-32.0); MEAN CORPUSCULAR VOLUME 92.2 fL (81.0-99.0); MEAN PLATELET VOLUME 9.1 fl (7.4-10.4); PLATELET 75 x1000/uL (130-400); RED BLOOD CELL COUNT 4.12 mill/uL (4.2-5.4); RED CELL DISTRIBUTION WIDTH 14.4 % (11.6-14.6)
[2019-03-05 06:31] LABS: CHLORIDE 112 mEq/L (98-107)
[2019-03-05 06:48] LABS: CREATINE KINASE 193 IU/L (26-192)
[2019-03-05 06:51] LABS: CREATINE KINASE MB FRACTION 1.6 ng/mL (0.5-3.6)
[2019-03-05 08:00] VITALS: BP 145/97
[2019-03-05] MEDS ORDERED: NIFEDIPINE XL 60MG TAB PO SCH (09:00)
[2019-03-05] MEDS: HYDROXYCHLOROQUINE SULFATE 200MG TABLET PO SCH (09:18)
[2019-03-05] MEDS: AZATHIOPRINE 50MG TABLET PO SCH (09:18)
[2019-03-05] MEDS: AMBRISENTAN 10 MG PO SCH (09:19)
[2019-03-05] MEDS: BENAZEPRIL 10MG TABLET PO SCH ×2 (09:20→21:00)
[2019-03-05] MEDS ORDERED: FUROSEMIDE 40MG/4ML VIAL IVP SCH (10:15)
[2019-03-05] MEDS ORDERED: POTASSIUM CHLORIDE 20MEQ TABLET SR PO NR (10:15)
[2019-03-05 10:24] LABS: PLATELET ESTIMATE DECREASED
[2019-03-05] MEDS ORDERED: DEXTROSE 50% WATER 50ML SYRINGE IV PRN (11:30)
[2019-03-05 12:00] VITALS: BP 136/87
[2019-03-05] MEDS ORDERED: MAGNESIUM 2 G PREMIX 50 ML IV NR (12:00)
[2019-03-05] MEDS: INSULIN LISPRO 100 UNITS/ML SUBCUT SCH ×3 (12:50→21:00)
[2019-03-05] MEDS: BLOOD SUGAR DIAGNOSTIC STRIP TEST SCH ×3 (12:58→21:00)
[2019-03-05 16:00] VITALS: BP 132/74
[2019-03-05] MEDS: POTASSIUM CHLORIDE 20MEQ TABLET SR PO SCH (17:42)
[2019-03-05 20:00] VITALS: BP 107/70
[2019-03-05] MEDS: NIFEDIPINE XL 60MG TAB PO SCH (21:00)
[2019-03-05] MEDS: FUROSEMIDE 40MG/4ML VIAL IVP SCH (21:33)
[2019-03-05] MEDS: ACETAMINOPHEN 325MG TABLET PO PRN (21:42)
[2019-03-06] VITALS: BP 90/52
[2019-03-06 04:00] VITALS: BP 95/59
[2019-03-06] MEDS: PHENYTOIN SODIUM EXTENDED 100MG CAPSULE PO SCH ×3 (05:14→22:00)
[2019-03-06 06:06] LABS: CHLORIDE 112 mEq/L (98-107)
[2019-03-06 06:35] LABS: BASOPHILS % 0.6 % (0.0-2.0); EOSINOPHILS % 1.7 % (0.0-5.0); HEMATOCRIT. 39.3 % (36.0-48.0); HEMOGLOBIN. 13.5 g/dL (12.0-16.0); LYMPHOCYTES % 18.4 % (20.0-50.0); MEAN CORPUSCULAR HEMOGLOBIN 31.6 pg (28.0-32.0); MEAN CORPUSCULAR VOLUME 92.4 fL (81.0-99.0); MEAN PLATELET VOLUME 9.3 fl (7.4-10.4); MONOCYTES % 12.4 % (2.0-8.0); NEUTROPHILS % 66.9 % (40.0-76.0); PLATELET 88 x1000/uL (130-400); RED BLOOD CELL COUNT 4.26 mill/uL (4.2-5.4); RED CELL DISTRIBUTION WIDTH 14.5 % (11.6-14.6)
[2019-03-06] MEDS: BLOOD SUGAR DIAGNOSTIC STRIP TEST SCH ×4 (06:36→20:35)
[2019-03-06] MEDS: FUROSEMIDE 40MG/4ML VIAL IVP SCH ×2 (06:36→18:37)
[2019-03-06] MEDS: INSULIN LISPRO 100 UNITS/ML SUBCUT SCH ×4 (07:50→20:35)
[2019-03-06 08:00] VITALS: BP 106/68
[2019-03-06] MEDS: NIFEDIPINE XL 60MG TAB PO SCH (09:00)
[2019-03-06] MEDS: BENAZEPRIL 10MG TABLET PO SCH ×2 (09:00→20:33)
[2019-03-06] MEDS: HYDROXYCHLOROQUINE SULFATE 200MG TABLET PO SCH (09:00)
[2019-03-06] MEDS: AZATHIOPRINE 50MG TABLET PO SCH (09:00)
[2019-03-06] MEDS: AMBRISENTAN 10 MG PO SCH (09:00)
[2019-03-06] MEDS: POTASSIUM CHLORIDE 20MEQ TABLET SR PO SCH ×2 (09:00→18:37)
[2019-03-06] MEDS ORDERED: POTASSIUM CHLORIDE 20MEQ TABLET SR PO NR (14:00)
[2019-03-06] MEDS: CALCIUM CARBONATE 500MG TABLET CHEW PO PRN (14:17)
[2019-03-06] MEDS: ACETAMINOPHEN 325MG TABLET PO PRN (18:37)
[2019-03-06 20:00] VITALS: BP 104/73
[2019-03-06] MEDS: NIFEDIPINE XL 30MG TAB PO SCH (20:34)
[2019-03-07] VITALS: BP 114/78
[2019-03-07 04:00] VITALS: BP 114/79
[2019-03-07] MEDS: PHENYTOIN SODIUM EXTENDED 100MG CAPSULE PO SCH ×3 (06:00→22:00)
[2019-03-07] MEDS: FUROSEMIDE 40MG/4ML VIAL IVP SCH ×2 (06:39→17:50)
[2019-03-07] MEDS: BLOOD SUGAR DIAGNOSTIC STRIP TEST SCH ×4 (06:43→21:12)
[2019-03-07] MEDS: INSULIN LISPRO 100 UNITS/ML SUBCUT SCH ×4 (07:50→21:00)
[2019-03-07 08:00] VITALS: BP_SYST 123; BP_SYST 96; BP_DIAS 38; BP_DIAS 80
[2019-03-07] MEDS: POTASSIUM CHLORIDE 20MEQ TABLET SR PO SCH ×2 (08:40→17:50)
[2019-03-07] MEDS: BENAZEPRIL 10MG TABLET PO SCH ×2 (08:40→20:59)
[2019-03-07] MEDS: NIFEDIPINE XL 30MG TAB PO SCH ×2 (08:41→20:59)
[2019-03-07] MEDS: HYDROXYCHLOROQUINE SULFATE 200MG TABLET PO SCH (08:41)
[2019-03-07] MEDS: AZATHIOPRINE 50MG TABLET PO SCH (08:41)
[2019-03-07] MEDS: AMBRISENTAN 10 MG PO SCH (09:00)
[2019-03-07 11:00] LABS: BASOPHILS % 0.9 % (0.0-2.0); EOSINOPHILS % 4.3 % (0.0-5.0); HEMATOCRIT. 39.6 % (36.0-48.0); HEMOGLOBIN. 13.4 g/dL (12.0-16.0); LYMPHOCYTES % 26.2 % (20.0-50.0); MEAN CORPUSCULAR HEMOGLOBIN 31.3 pg (28.0-32.0); MEAN CORPUSCULAR VOLUME 92.7 fL (81.0-99.0); MONOCYTES % 11.3 % (2.0-8.0); NEUTROPHILS % 57.3 % (40.0-76.0); PLATELET 90 x1000/uL (130-400); RED BLOOD CELL COUNT 4.27 mill/uL (4.2-5.4); RED CELL DISTRIBUTION WIDTH 14.7 % (11.6-14.6)
[2019-03-07 11:30] LABS: CHLORIDE 110 mEq/L (98-107)
[2019-03-07] MEDS ORDERED: POTASSIUM CHLORIDE 20MEQ TABLET SR PO NR (14:30)
[2019-03-07] MEDS ORDERED: MAGNESIUM 2 G PREMIX 50 ML IV NR ×2 (15:00→17:00)
[2019-03-07 20:00] VITALS: BP 100/69
[2019-03-07] MEDS ORDERED: HYDR200T80 MT (20:02)
[2019-03-07 22:00] VITALS: BP 100/69
[2019-03-08] VITALS: BP 100/69
[2019-03-08 04:00] VITALS: BP 94/65
[2019-03-08] MEDS: PHENYTOIN SODIUM EXTENDED 100MG CAPSULE PO SCH ×3 (06:00→21:10)
[2019-03-08] MEDS: FUROSEMIDE 40MG/4ML VIAL IVP SCH ×2 (06:18→18:14)
[2019-03-08] MEDS: BLOOD SUGAR DIAGNOSTIC STRIP TEST SCH ×4 (06:21→20:27)
[2019-03-08] MEDS: INSULIN LISPRO 100 UNITS/ML SUBCUT SCH ×4 (07:50→20:27)
[2019-03-08 08:00] VITALS: BP 117/81
[2019-03-08] MEDS: AZATHIOPRINE 50MG TABLET PO SCH (09:46)
[2019-03-08] MEDS: ACETAMINOPHEN 325MG TABLET PO PRN (09:46)
[2019-03-08] MEDS: BENAZEPRIL 10MG TABLET PO SCH ×2 (09:47→21:00)
[2019-03-08] MEDS: NIFEDIPINE XL 30MG TAB PO SCH ×2 (09:47→21:00)
[2019-03-08] MEDS: POTASSIUM CHLORIDE 20MEQ TABLET SR PO SCH ×2 (09:47→18:14)
[2019-03-08] MEDS: HYDROXYCHLOROQUINE SULFATE 200MG TABLET PO SCH (09:47)
[2019-03-08] MEDS: AMBRISENTAN 10 MG PO SCH (09:48)
[2019-03-08 10:36] LABS: EOSINOPHILS % 2.5 % (0.0-5.0); HEMATOCRIT. 42.3 % (36.0-48.0); HEMOGLOBIN. 14.1 g/dL (12.0-16.0); LYMPHOCYTES % 20.9 % (20.0-50.0); MEAN CORPUSCULAR HEMOGLOBIN 31.1 pg (28.0-32.0); MEAN CORPUSCULAR VOLUME 93.4 fL (81.0-99.0); MEAN PLATELET VOLUME 8.9 fl (7.4-10.4); MONOCYTES % 10.4 % (2.0-8.0); NEUTROPHILS % 65.2 % (40.0-76.0); PLATELET 102 x1000/uL (130-400); RED BLOOD CELL COUNT 4.53 mill/uL (4.2-5.4); RED CELL DISTRIBUTION WIDTH 14.7 % (11.6-14.6)
[2019-03-08 11:53] LABS: CHLORIDE 111 mEq/L (98-107)
[2019-03-08 12:00] VITALS: BP 99/79
[2019-03-08 16:00] VITALS: BP 93/54
[2019-03-08 20:00] VITALS: BP 99/61
[2019-03-08] MEDS: CALCIUM CARBONATE 500MG TABLET CHEW PO PRN (20:43)
[2019-03-09] VITALS: BP 91/51
[2019-03-09 04:00] VITALS: BP 104/68
[2019-03-09] MEDS: PHENYTOIN SODIUM EXTENDED 100MG CAPSULE PO SCH (06:00)
[2019-03-09] MEDS: BLOOD SUGAR DIAGNOSTIC STRIP TEST SCH ×2 (06:25→12:20)
[2019-03-09] MEDS: FUROSEMIDE 40MG/4ML VIAL IVP SCH (06:34)
[2019-03-09] MEDS: INSULIN LISPRO 100 UNITS/ML SUBCUT SCH ×2 (07:39→12:50)
[2019-03-09 08:00] VITALS: BP 104/71
[2019-03-09] MEDS: BENAZEPRIL 10MG TABLET PO SCH (09:00)
[2019-03-09] MEDS: POTASSIUM CHLORIDE 20MEQ TABLET SR PO SCH (09:14)
[2019-03-09] MEDS: AMBRISENTAN 10 MG PO SCH (09:14)
[2019-03-09] MEDS: AZATHIOPRINE 50MG TABLET PO SCH (09:15)
[2019-03-09] MEDS: HYDROXYCHLOROQUINE SULFATE 200MG TABLET PO SCH (09:15)
[2019-03-09] MEDS: NIFEDIPINE XL 30MG TAB PO SCH (09:17)
[2019-03-09] MEDS: ACETAMINOPHEN 325MG TABLET PO PRN (11:21)
[2019-03-09] MEDS ORDERED: POTASSIUM CHLORIDE 20MEQ TABLET SR PO SCH (12:00)
[2019-03-09] MEDS ORDERED: LOT10 PO (12:00)
[2019-03-09] MEDS ORDERED: FURO40TA5 MT (12:00)
[2019-03-09 12:32] VITALS: BP 104/69
== END 2019-03-09 13:30 | disposition home or self-care (01) | DRG 194 ==
LOC: ER 21:55 → 6WST 03-04 03:21 → CANRESERV 03-04 07:03 → ENRESERV 03-04 07:03 → CANRESERV 03-04 08:12 → ENRESERV 03-04 08:12 → 6WST 03-08 13:22
PROVIDERS: ADMIT Internal Medicine; ATTEND Internal Medicine
DX: I11.0 Hypertensive heart disease with heart failure (principal); D69.6 Thrombocytopenia, unspecified; I27.20 Pulmonary hypertension, unspecified; E46 Unspecified protein-calorie malnutrition; E83.42 Hypomagnesemia; I07.1 Rheumatic tricuspid insufficiency; M32.9 Systemic lupus erythematosus, unspecified; I50.31 Acute diastolic (congestive) heart failure; D72.821 Monocytosis (symptomatic); E87.6 Hypokalemia; G40.909 Epilepsy, unspecified, not intractable, without status epilepticus; G43.909 Migraine, unspecified, not intractable, without status migrainosus; Z86.73 Personal history of transient ischemic attack (TIA), and cerebral infarction without residual deficits; J44.9 Chronic obstructive pulmonary disease, unspecified; Z88.0 Allergy status to penicillin; I50.33 Acute on chronic diastolic (congestive) heart failure; R74.0 Nonspecific elevation of levels of transaminase and lactic acid dehydrogenase [LDH]; T45.1X5A Adverse effect of antineoplastic and immunosuppressive drugs, initial encounter; Y92.89 Other specified places as the place of occurrence of the external cause; Z68.28 Body mass index [BMI] 28.0-28.9, adult
CPT/HCPCS: 36415; 71045; 71275; 80048; 80305; 81003; 82550; 82553; 82962; 83605; 83735; 83880; 84484; 85379; 87804; 93005; 93306; 93970; 97162; 99285; J1940; J3475; J7030; J7500; Q9967

== ENCOUNTER 2019-07-05 11:27 | Emergency (ER) | payer MEDICAID ==
[~2019-07-05] VITALS: Ht 170.2 cm; Wt 67.0 kg
[~2019-07-05 11:27] MED LIST changes: -AMBR10TA3 PO; -ANORO INH; -AZAT50TA18 MT; -BENA20TA10 PO; -FURO-152 MT; -FURO20TA4 PO; +FURO40TA5 MT; +HYDR200T80 MT; -HYDROXYCHLOROQUINE; -LETAIRIS PO; +LOT10 PO; -METH4TAB PO
[2019-07-05] MEDS ORDERED: FUROSEMIDE 40MG/4ML VIAL IVP ONE (13:00)
[2019-07-05 13:12] LABS: CHLORIDE 95 mEq/L (98-107)
[2019-07-05 13:13] LABS: BASOPHILS % 0.1 % (0.0-2.0); EOSINOPHILS % 0.6 % (0.0-5.0); HEMATOCRIT. 38.8 % (36.0-48.0); HEMOGLOBIN. 12.9 g/dL (12.0-16.0); LYMPHOCYTES % 11.4 % (20.0-50.0); MEAN CORPUSCULAR HEMOGLOBIN 32.8 pg (28.0-32.0); MEAN CORPUSCULAR VOLUME 98.3 fL (81.0-99.0); MEAN PLATELET VOLUME 8.8 fl (7.4-10.4); MONOCYTES % 11.6 % (2.0-8.0); NEUTROPHILS % 76.3 % (40.0-76.0); RED BLOOD CELL COUNT 3.95 mill/uL (4.2-5.4); RED CELL DISTRIBUTION WIDTH 16.8 % (11.6-14.6)
[2019-07-05 13:20] LABS: PLATELET 23 x1000/uL (130-400)
[2019-07-05 13:29] LABS: PLATELET ESTIMATE MARKEDLY DECREASED
[2019-07-05] MEDS ORDERED: KCL 20MEQ/100ML PREMIX 100 ML IV ONE (14:15)
[2019-07-05] MEDS ORDERED: ASPIRIN 325MG EC TABLET PO ONE (16:15)
[2019-07-05] MEDS ORDERED: ENOXAPARIN 60MG/0.6ML SYR SUBCUT ONE (16:15)
[2019-07-05] MEDS ORDERED: ACETAMINOPHEN 500MG TABLET PO ONE (16:15)
[2019-07-05] MEDS ORDERED: METOPROLOL TARTRATE 25MG TABLET PO ONE (16:15)
[2019-07-05 18:15] VITALS: BP 128/71
[2019-07-05] MEDS ORDERED: EPINEPHRINE 0.1MG/ML (1:10,000) 10ML SYR ONE ×4 (19:49→21:05)
[2019-07-05] MEDS ORDERED: NOREPINEPHRINE 4MG/250ML PMX 250 ML IV ONE (20:16)
[2019-07-05] MEDS ORDERED: DOPAMINE 400MG/250ML PREMIX 250 ML IV ONE ×2 (20:19→20:30)
[2019-07-05] MEDS ORDERED: NOREPINEPHRINE 4 MG in DEXT 5% WATER 246 ML IV ONE (20:30)
[2019-07-05] MEDS ORDERED: SODIUM BICARBONATE 8.4% 1 MEQ/ML 50ML SYR IV ONE ×2 (20:44→21:05)
[2019-07-05] MEDS ORDERED: DEXTROSE 50% WATER 50ML SYRINGE IV ONE (20:53)
== END 2019-07-05 21:15 | disposition expired ==
LOC: ER 11:27 → EDBEDREQTM 20:37 → EDBEDREQSVC 20:37 → EDBEDREQ 20:37 → ENRESERV 21:06 → ER 21:15 → CANBEDREQ 22:10
DX: I11.0 Hypertensive heart disease with heart failure (principal); I50.9 Heart failure, unspecified; R09.02 Hypoxemia; D69.6 Thrombocytopenia, unspecified; I21.4 Non-ST elevation (NSTEMI) myocardial infarction; N17.9 Acute kidney failure, unspecified; E87.70 Fluid overload, unspecified; J44.9 Chronic obstructive pulmonary disease, unspecified; Z98.890 Other specified postprocedural states; Z79.899 Other long term (current) drug therapy; Z88.1 Allergy status to other antibiotic agents
CPT/HCPCS: 36415; 71045; 78582; 80053; 82962; 83880; 84484; 85025; 93005; 93970; 94002; 96374; 99291; A9540; A9558; J1265; J1940; J3480; J3490; J7040; J7060; Z7610; A4315